=== PATIENT | female | born 1935 | race African-American/Black ===

== ENCOUNTER 2016-12-08 10:49 | Inpatient (IN) | payer MEDICARE ==
[~2016-12-08] VITALS: Ht 149.9 cm; Wt 52.6 kg
[2016-12-08] MEDS ORDERED: DEXTROSE 50% WATER 50ML SYRINGE IV ONE ×3 (11:16→15:30)
[2016-12-08] MEDS ORDERED: SODIUM CHLORIDE 0.9% 1,000 ML IV ONE ×3 (12:15→16:30)
[2016-12-08 12:48] LABS: BASOPHILS % 0.3 % (0.0-2.0); LYMPHOCYTES % 12.8 % (20.0-50.0); MEAN CORPUSCULAR HEMOGLOBIN 30.1 pg (28.0-32.0); MONOCYTES % 4.1 % (2.0-8.0); NEUTROPHILS % 82.8 % (40.0-76.0); PLATELET 69 x1000/uL (130-400); RED BLOOD CELL COUNT 2.14 mill/uL (4.2-5.4); RED CELL DISTRIBUTION WIDTH 17.9 % (11.6-14.6)
[2016-12-08 12:57] LABS: INR 1.3; PROTHROMBIN TIME 13.1 sec (9.4-11.6)
[2016-12-08 12:59] LABS: CARBON DIOXIDE 20 mEq/L (21-32); CHLORIDE 105 mEq/L (98-107)
[2016-12-08 13:03] LABS: HEMATOCRIT. 18.8 % (36.0-48.0); HEMOGLOBIN. 6.4 g/dL (12.0-16.0)
[2016-12-08 13:05] LABS: TROPONIN I 0.06 ng/mL (0.00-0.04)
[2016-12-08] MEDS ORDERED: DEXT 10%/0.9% NACL 1,000 ML IV ONE (15:30)
[2016-12-08] MEDS ORDERED: LEVOFLOXACIN 500MG PREMIX 100 ML IV ONE (16:30)
[2016-12-08 16:41] LABS: CLARITY URINE CLOUDY (CLEAR); COLOR URINE YELLOW (YELLOW); GLUCOSE URINE NEGATIVE (NEGATIVE); KETONES URINE NEGATIVE (NEGATIVE); LEUKOCYTE ESTERASE URINE NEGATIVE (NEGATIVE); NITRITE URINE NEGATIVE (NEGATIVE); OCCULT BLOOD URINE NEGATIVE (NEGATIVE); PROTEIN URINE NEGATIVE (NEGATIVE); SPECIFIC GRAVITY URINE 1.017 (1.005-1.030); UROBILINOGEN URINE 0.2 E.U./dL (0.2-1.0)
[2016-12-08 16:53] LABS: *AMPHETAMINES SCREEN URINE NEGATIVE (NEGATIVE); *BARBITURATES SCREEN URINE NEGATIVE (NEGATIVE); *BENZODIAZEPINES SCREEN URINE NEGATIVE (NEGATIVE); *COCAINE SCREEN URINE NEGATIVE (NEGATIVE); CANNABINOID URINE SCREEN NEGATIVE (NEGATIVE); METHADONE URINE SCREEN NEGATIVE (NEGATIVE); OPIATES URINE SCREEN NEGATIVE (NEGATIVE); PHENCYCLIDINE URINE SCREEN NEGATIVE (NEGATIVE)
[2016-12-08] MEDS ORDERED: DOPAMINE 800MG PREMIX 250 ML IV ONE (17:15)
[2016-12-08] MEDS ORDERED: DOPAMINE 800MG PREMIX 250 ML IV PRN (17:30)
[2016-12-08] MEDS ORDERED: VANCOMYCIN 1 G PREMIX 200 ML IV SCH (21:00)
[2016-12-08] MEDS: DEXT 5%/0.9% NACL 1,000 ML IV SCH (21:14)
[2016-12-08] MEDS ORDERED: ONDANSETRON HCL 4MG/2ML VIAL IV PRN (22:12)
[2016-12-08] MEDS ORDERED: ACETAMINOPHEN 325MG TABLET PO PRN (22:12)
[2016-12-08 23:42] VITALS: BP 164/115
[2016-12-08 23:52] VITALS: BP 143/53
[2016-12-09] VITALS (101 sets, daily range): BP systolic 62–173; BP diastolic 20–124
[2016-12-09] MEDS ORDERED: AZTREONAM 1 G in DEXTROSE 5% WATER 50 ML IV SCH (01:00)
[2016-12-09 05:26] LABS: HEMATOCRIT. 36.9 % (36.0-48.0); MEAN CORPUSCULAR HEMOGLOBIN 30.1 pg (28.0-32.0); MEAN CORPUSCULAR VOLUME 85.3 fL (81.0-99.0); MEAN PLATELET VOLUME 7.3 fl (7.4-10.4); PLATELET 66 x1000/uL (130-400); RED BLOOD CELL COUNT 4.32 mill/uL (4.2-5.4); RED CELL DISTRIBUTION WIDTH 16.2 % (11.6-14.6)
[2016-12-09 05:54] LABS: CARBON DIOXIDE 18 mEq/L (21-32); CHLORIDE 104 mEq/L (98-107)
[2016-12-09] MEDS: DOPAMINE 400MG PREMIX 250 ML IV PRN ×3 (06:02→23:31)
[2016-12-09] MEDS ORDERED: MAGNESIUM 2 G PREMIX 50 ML IV SCH (09:00)
[2016-12-09] MEDS: AZTREONAM 500MG in DEXTROSE 5% WATER 50ML IV SCH ×2 (09:39→16:25)
[2016-12-09 10:18] LABS: PLATELET ESTIMATE DECREASED
[2016-12-09] MEDS: DEXT 5%/0.9% NACL 1,000 ML IV SCH (11:28)
[2016-12-09] MEDS ORDERED: IPRATROPIUM/ALBUTEROL 0.5-3(2.5)MG/3ML NEB HHN PRN (12:45)
[2016-12-09] MEDS: IPRATROPIUM/ALBUTEROL 0.5-3(2.5)MG/3ML NEB HHN SCH ×3 (13:26→21:09)
[2016-12-09] MEDS: NOREPINEPHRINE 4 MG in DEXT 5% WATER 246 ML IV PRN ×2 (14:00→21:02)
[2016-12-09 15:15] LABS: HEMATOCRIT 36.8 % (36.0-48.0); HEMOGLOBIN 12.9 g/dL (12.0-16.0)
[2016-12-09] MEDS ORDERED: FERR-63 PO (19:12)
[2016-12-09] MEDS ORDERED: VITAMIN D PO (19:12)
[2016-12-09] MEDS ORDERED: AMLO10TA80 PO (19:12)
[2016-12-09] MEDS ORDERED: METF500T4 PO (19:12)
[2016-12-09] MEDS ORDERED: LISI40TA4 PO (19:12)
[2016-12-09] MEDS: VANCOMYCIN 500 MG PREMIX 100 ML IV SCH (20:16)
[2016-12-09] MEDS ORDERED: NOREPINEPHRINE 16 MG in DEXT 5% WATER 484 ML IV PRN (23:30)
[2016-12-09] MEDS ORDERED: NOREPINEPHRINE 16 MG in DEXT 5% WATER 500 ML IV PRN (23:30)
[2016-12-09] MEDS: NOREPINEPHRINE 16 MG in DEXTROSE 5% WATER 250 ML IV PRN (23:32)
[2016-12-10] VITALS (97 sets, daily range): BP systolic 65–157; BP diastolic 34–134
[2016-12-10] MEDS: IPRATROPIUM/ALBUTEROL 0.5-3(2.5)MG/3ML NEB HHN SCH ×6 (00:37→20:35)
[2016-12-10] MEDS: AZTREONAM 500MG in DEXTROSE 5% WATER 50ML IV SCH ×2 (00:55→08:30)
[2016-12-10] MEDS: DEXT 5%/0.9% NACL 1,000 ML IV SCH ×2 (05:44→08:30)
[2016-12-10 05:46] LABS: BASOPHILS % 0.1 % (0.0-2.0); HEMATOCRIT. 37.8 % (36.0-48.0); HEMOGLOBIN. 12.9 g/dL (12.0-16.0); LYMPHOCYTES % 8.3 % (20.0-50.0); MEAN CORPUSCULAR HEMOGLOBIN 29.6 pg (28.0-32.0); MEAN CORPUSCULAR VOLUME 86.6 fL (81.0-99.0); MEAN PLATELET VOLUME 7.8 fl (7.4-10.4); MONOCYTES % 2.6 % (2.0-8.0); RED BLOOD CELL COUNT 4.36 mill/uL (4.2-5.4); RED CELL DISTRIBUTION WIDTH 16.9 % (11.6-14.6)
[2016-12-10 06:29] LABS: CARBON DIOXIDE 15 mEq/L (21-32); CHLORIDE 106 mEq/L (98-107); CREATINE KINASE 234 IU/L (26-192)
[2016-12-10 07:02] LABS: PLATELET 49 x1000/uL (130-400)
[2016-12-10 10:00] LABS: T4 FREE 0.21 ng/dL (0.76-1.46)
[2016-12-10] MEDS ORDERED: LEVOTHYROXINE SODIUM 100 MCG/ VIAL IV SCH (10:00)
[2016-12-10] MEDS: BLOOD SUGAR DIAGNOSTIC STRIP TEST SCH ×2 (11:10→16:53)
[2016-12-10] MEDS: INSULIN LISPRO 100 UNITS/ML SUBCUT SCH ×3 (11:21→20:52)
[2016-12-10 11:37] LABS: AMYLASE 508 IU/L (25-115)
[2016-12-10] MEDS ORDERED: DEXTROSE 50% WATER 50ML SYRINGE IV PRN (12:00)
[2016-12-10 12:27] LABS: HEPATITIS B SURFACE ANTIGEN NEGATIVE
[2016-12-10 12:55] LABS: HEPATITIS B CORE AB IGM NEGATIVE
[2016-12-10 12:57] LABS: HEPATITIS A AB IGM NEGATIVE (NEGATIVE)
[2016-12-10] MEDS: AZTREONAM 1G in DEXTROSE 5% WATER 50ML IV SCH ×2 (13:02→22:21)
[2016-12-10] MEDS: NOREPINEPHRINE 16 MG in DEXTROSE 5% WATER 250 ML IV PRN ×2 (13:20→22:24)
[2016-12-10] MEDS: DOPAMINE 400MG PREMIX 250 ML IV PRN (15:41)
[2016-12-10 16:05] LABS: VITAMIN B12 SERUM 282 pg/mL (211-911)
[2016-12-10] MEDS: LEVOFLOXACIN 500MG PREMIX 100 ML IV SCH (17:03)
[2016-12-10] MEDS ORDERED: LEVOFLOXACIN 250MG PREMIX 50 ML IV SCH (18:00)
[2016-12-10] MEDS: SODIUM ACETATE 100 MEQ in DEXTROSE 5% WATER 1,000 ML IV SCH (18:39)
[2016-12-10] MEDS: VANCOMYCIN 500 MG PREMIX 100 ML IV SCH (20:45)
[2016-12-11] VITALS (95 sets, daily range): BP systolic 85–141; BP diastolic 50–74
[2016-12-11] MEDS: IPRATROPIUM/ALBUTEROL 0.5-3(2.5)MG/3ML NEB HHN SCH ×6 (03:06→20:16)
[2016-12-11 06:21] LABS: BASOPHILS % 0.1 % (0.0-2.0); EOSINOPHILS % 0.1 % (0.0-5.0); HEMATOCRIT. 39.1 % (36.0-48.0); HEMOGLOBIN. 13.6 g/dL (12.0-16.0); MEAN CORPUSCULAR HEMOGLOBIN 30.2 pg (28.0-32.0); MEAN PLATELET VOLUME 8.2 fl (7.4-10.4); MONOCYTES % 2.8 % (2.0-8.0); PLATELET 58 x1000/uL (130-400); RED BLOOD CELL COUNT 4.49 mill/uL (4.2-5.4); RED CELL DISTRIBUTION WIDTH 16.5 % (11.6-14.6)
[2016-12-11] MEDS: AZTREONAM 1G in DEXTROSE 5% WATER 50ML IV SCH ×3 (06:40→21:25)
[2016-12-11] MEDS: LEVOTHYROXINE SODIUM 100 MCG/ VIAL IV SCH (06:41)
[2016-12-11] MEDS: BLOOD SUGAR DIAGNOSTIC STRIP TEST SCH ×4 (06:41→17:07)
[2016-12-11] MEDS: DOPAMINE 400MG PREMIX 250 ML IV PRN (06:44)
[2016-12-11] MEDS: NOREPINEPHRINE 16 MG in DEXTROSE 5% WATER 250 ML IV PRN ×2 (07:56→18:21)
[2016-12-11 07:58] LABS: CARBON DIOXIDE 17 mEq/L (21-32); PHOSPHORUS 1.1 mg/dL (2.5-4.9)
[2016-12-11] MEDS: SODIUM ACETATE 100 MEQ in DEXTROSE 5% WATER 1,000 ML IV SCH ×2 (08:36→20:03)
[2016-12-11 08:38] LABS: CHLORIDE 103 mEq/L (98-107)
[2016-12-11] MEDS ORDERED: SODIUM PHOS,M-BASIC-D-BASIC 15 MM in DEXT 5% WATER 245 ML IV SCH (11:00)
[2016-12-11] MEDS ORDERED: MAGNESIUM 4 G PREMIX 100 ML IV SCH (11:00)
[2016-12-11] MEDS: INSULIN LISPRO 100 UNITS/ML SUBCUT SCH ×3 (12:00→20:03)
[2016-12-11] MEDS: VANCOMYCIN 750 MG PREMIX 150 ML IV SCH (12:03)
[2016-12-11] MEDS: HYDROCORTISONE SOD SUCCINATE 100 MG/2 ML VIAL IV SCH ×2 (15:31→21:25)
[2016-12-11] MEDS: DOCUSATE SODIUM SUGAR FREE 100MG/10ML UDC NG SCH (15:36)
[2016-12-12] VITALS (79 sets, daily range): BP systolic 79–154; BP diastolic 41–82
[2016-12-12] MEDS: IPRATROPIUM/ALBUTEROL 0.5-3(2.5)MG/3ML NEB HHN SCH ×6 (00:15→16:50)
[2016-12-12] MEDS: BLOOD SUGAR DIAGNOSTIC STRIP TEST SCH ×4 (00:17→17:35)
[2016-12-12] MEDS: NOREPINEPHRINE 16 MG in DEXTROSE 5% WATER 250 ML IV PRN ×2 (04:29→17:28)
[2016-12-12] MEDS: SODIUM ACETATE 100 MEQ in DEXTROSE 5% WATER 1,000 ML IV SCH ×2 (04:29→22:18)
[2016-12-12] MEDS: AZTREONAM 1G in DEXTROSE 5% WATER 50ML IV SCH ×3 (05:26→22:18)
[2016-12-12] MEDS: LEVOTHYROXINE SODIUM 100 MCG/ VIAL IV SCH (05:26)
[2016-12-12] MEDS: INSULIN LISPRO 100 UNITS/ML SUBCUT SCH (05:42)
[2016-12-12 05:51] LABS: HEMATOCRIT. 35.6 % (36.0-48.0); HEMOGLOBIN. 12.4 g/dL (12.0-16.0); MEAN CORPUSCULAR HEMOGLOBIN 29.7 pg (28.0-32.0); MEAN CORPUSCULAR VOLUME 85.1 fL (81.0-99.0); MEAN PLATELET VOLUME 7.7 fl (7.4-10.4); RED BLOOD CELL COUNT 4.18 mill/uL (4.2-5.4); RED CELL DISTRIBUTION WIDTH 16.6 % (11.6-14.6)
[2016-12-12 06:59] LABS: CARBON DIOXIDE 22 mEq/L (21-32); CHLORIDE 99 mEq/L (98-107); PHOSPHORUS 3.2 mg/dL (2.5-4.9)
[2016-12-12 07:20] LABS: TROPONIN I 0.79 ng/mL (0.00-0.04)
[2016-12-12] MEDS: DOCUSATE SODIUM SUGAR FREE 100MG/10ML UDC NG SCH (09:49)
[2016-12-12 09:57] LABS: NUCLEATED RED BLOOD CELLS 2 /100 WBC; PLATELET ESTIMATE MARKEDLY DECREASED
[2016-12-12 09:58] LABS: PLATELET 40 x1000/uL (130-400)
[2016-12-12] MEDS ORDERED: INSULIN LISPRO 100 UNITS/ML SUBCUT SCH (12:00)
[2016-12-12] MEDS: PANTOPRAZOLE SODIUM 40 MG/VIAL IV SCH (12:09)
[2016-12-12] MEDS: INSULIN LISPRO (LOW DOSE) 100 UNITS/ML SUBCUT SCH ×2 (12:10→17:28)
[2016-12-12] MEDS: VANCOMYCIN 750 MG PREMIX 150 ML IV SCH (12:11)
[2016-12-12] MEDS: LEVOFLOXACIN 500MG PREMIX 100 ML IV SCH (17:28)
[2016-12-13] VITALS (76 sets, daily range): BP systolic 83–127; BP diastolic 39–76
[2016-12-13] MEDS: BLOOD SUGAR DIAGNOSTIC STRIP TEST SCH ×4 (00:05→17:23)
[2016-12-13] MEDS: IPRATROPIUM/ALBUTEROL 0.5-3(2.5)MG/3ML NEB HHN SCH ×6 (00:39→20:02)
[2016-12-13] MEDS: AZTREONAM 1G in DEXTROSE 5% WATER 50ML IV SCH ×3 (05:21→21:30)
[2016-12-13] MEDS: LEVOTHYROXINE SODIUM 100 MCG/ VIAL IV SCH (05:21)
[2016-12-13 05:41] LABS: CARBON DIOXIDE 28 mEq/L (21-32); CHLORIDE 99 mEq/L (98-107); PHOSPHORUS 2.3 mg/dL (2.5-4.9)
[2016-12-13 05:58] LABS: BASOPHILS % 0.1 % (0.0-2.0); HEMATOCRIT. 31.3 % (36.0-48.0); HEMOGLOBIN. 10.9 g/dL (12.0-16.0); LYMPHOCYTES % 15.1 % (20.0-50.0); MEAN CORPUSCULAR HEMOGLOBIN 29.7 pg (28.0-32.0); MEAN CORPUSCULAR VOLUME 85.3 fL (81.0-99.0); MEAN PLATELET VOLUME 7.8 fl (7.4-10.4); NEUTROPHILS % 79.8 % (40.0-76.0); RED BLOOD CELL COUNT 3.67 mill/uL (4.2-5.4); RED CELL DISTRIBUTION WIDTH 16.7 % (11.6-14.6)
[2016-12-13] MEDS: INSULIN LISPRO (LOW DOSE) 100 UNITS/ML SUBCUT SCH ×4 (06:00→18:00)
[2016-12-13 06:05] LABS: PLATELET 37 x1000/uL (130-400)
[2016-12-13] MEDS ORDERED: POTASSIUM PHOS,M-BASIC-D-BASIC 15 MMOL in DEXT 5% WATER 245 ML IV NR (08:00)
[2016-12-13] MEDS: DOCUSATE SODIUM SUGAR FREE 100MG/10ML UDC NG SCH (09:07)
[2016-12-13] MEDS: PANTOPRAZOLE SODIUM 40 MG/VIAL IV SCH (09:07)
[2016-12-13 09:41] LABS: PLATELET ESTIMATE MARKEDLY DECREASED
[2016-12-13] MEDS ORDERED: LIDOCAINE HCL 1% 20ML VIAL (Pyxis) INJ ONE (10:51)
[2016-12-13] MEDS ORDERED: SODIUM BICARBONATE 4% (2.4MEQ) 5ML VIAL IV ONE (10:51)
[2016-12-13] MEDS ORDERED: IOHEXOL-300 100 ML BOTTLE ONE (10:51)
[2016-12-13] MEDS: SODIUM ACETATE 100 MEQ in DEXTROSE 5% WATER 1,000 ML IV SCH (12:27)
[2016-12-13] MEDS: DEXT 5%/0.45% NACL KCL 20MEQ/L 1,000 ML IV SCH (14:55)
[2016-12-13] MEDS: MIDODRINE HCL 5MG TABLET NG SCH ×2 (15:07→21:31)
[2016-12-14] VITALS (96 sets, daily range): BP systolic 83–129; BP diastolic 40–70
[2016-12-14] MEDS: BLOOD SUGAR DIAGNOSTIC STRIP TEST SCH ×4 (00:05→18:33)
[2016-12-14] MEDS: IPRATROPIUM/ALBUTEROL 0.5-3(2.5)MG/3ML NEB HHN SCH ×6 (00:17→20:20)
[2016-12-14] MEDS: DEXT 5%/0.45% NACL KCL 20MEQ/L 1,000 ML IV SCH (05:03)
[2016-12-14] MEDS: AZTREONAM 1G in DEXTROSE 5% WATER 50ML IV SCH ×3 (05:03→21:21)
[2016-12-14] MEDS: MIDODRINE HCL 5MG TABLET NG SCH ×3 (05:03→21:20)
[2016-12-14] MEDS: LEVOTHYROXINE SODIUM 100 MCG/ VIAL IV SCH (05:03)
[2016-12-14] MEDS: INSULIN LISPRO (LOW DOSE) 100 UNITS/ML SUBCUT SCH ×4 (05:04→18:00)
[2016-12-14 05:30] LABS: BASOPHILS % 0.1 % (0.0-2.0); EOSINOPHILS % 0.2 % (0.0-5.0); HEMATOCRIT. 32.3 % (36.0-48.0); HEMOGLOBIN. 11.4 g/dL (12.0-16.0); LYMPHOCYTES % 23.4 % (20.0-50.0); MEAN CORPUSCULAR VOLUME 84.9 fL (81.0-99.0); MEAN PLATELET VOLUME 8.3 fl (7.4-10.4); MONOCYTES % 5.6 % (2.0-8.0); NEUTROPHILS % 70.7 % (40.0-76.0); RED BLOOD CELL COUNT 3.81 mill/uL (4.2-5.4); RED CELL DISTRIBUTION WIDTH 16.2 % (11.6-14.6)
[2016-12-14 05:41] LABS: CARBON DIOXIDE 27 mEq/L (21-32); CHLORIDE 102 mEq/L (98-107); PHOSPHORUS 2.4 mg/dL (2.5-4.9)
[2016-12-14 05:47] LABS: PLATELET 36 x1000/uL (130-400)
[2016-12-14] MEDS ORDERED: MAGNESIUM 2 G PREMIX 50 ML IV NR (08:00)
[2016-12-14 09:06] LABS: A/G RATIO 0.7 (0.7-1.7); ALBUMIN 2.2 g/dL (2.9-4.4); ALPHA-1-GLOBULIN 0.4 g/dL (0.0-0.4); ALPHA-2-GLOBULIN 0.6 g/dL (0.4-1.0); BETA GLOBULIN 1.2 g/dL (0.7-1.3); GAMMA GLOBULINS 0.9 g/dL (0.4-1.8); GLOBULIN TOTAL 3.1 g/dL (2.2-3.9); M-SPIKE Not Observed g/dL (Not Observed); TOTAL PROTEIN SERUM 5.3 g/dL (6.0-8.5)
[2016-12-14] MEDS ORDERED: POTASSIUM PHOS,M-BASIC-D-BASIC 20 MMOL in DEXT 5% WATER 243.3333 ML IV NR (09:30)
[2016-12-14] MEDS: PANTOPRAZOLE SODIUM 40 MG/VIAL IV SCH (09:59)
[2016-12-14] MEDS: DOCUSATE SODIUM SUGAR FREE 100MG/10ML UDC NG SCH ×2 (09:59→10:05)
[2016-12-14] MEDS ORDERED: DEXT 5%/0.45% NACL KCL 20MEQ/L 1,000 ML IV SCH (10:00)
[2016-12-14] MEDS: LEVOFLOXACIN 500MG PREMIX 100 ML IV SCH (17:16)
[2016-12-14] MEDS ORDERED: VANCOMYCIN 1 G PREMIX 200 ML IV SCH (21:00)
[2016-12-14] MEDS: NOREPINEPHRINE 16 MG in DEXTROSE 5% WATER 250 ML IV PRN (21:20)
[2016-12-15] VITALS (102 sets, daily range): BP systolic 60–119; BP diastolic 36–64
[2016-12-15] MEDS: IPRATROPIUM/ALBUTEROL 0.5-3(2.5)MG/3ML NEB HHN SCH ×7 (00:12→23:49)
[2016-12-15 05:34] LABS: HEMATOCRIT. 31.5 % (36.0-48.0); HEMOGLOBIN. 11.1 g/dL (12.0-16.0); MEAN CORPUSCULAR HEMOGLOBIN 29.9 pg (28.0-32.0); MEAN CORPUSCULAR VOLUME 85.2 fL (81.0-99.0); MEAN PLATELET VOLUME 8.5 fl (7.4-10.4); RED CELL DISTRIBUTION WIDTH 16.5 % (11.6-14.6)
[2016-12-15 05:57] LABS: PLATELET 39 x1000/uL (130-400)
[2016-12-15 05:59] LABS: CARBON DIOXIDE 27 mEq/L (21-32); CHLORIDE 101 mEq/L (98-107)
[2016-12-15] MEDS: INSULIN LISPRO (LOW DOSE) 100 UNITS/ML SUBCUT SCH ×5 (06:00→23:00)
[2016-12-15] MEDS: BLOOD SUGAR DIAGNOSTIC STRIP TEST SCH ×5 (06:12→23:00)
[2016-12-15] MEDS: MIDODRINE HCL 5MG TABLET NG SCH ×3 (06:14→23:00)
[2016-12-15] MEDS: AZTREONAM 1G in DEXTROSE 5% WATER 50ML IV SCH ×3 (06:15→22:59)
[2016-12-15] MEDS: LEVOTHYROXINE SODIUM 100 MCG/ VIAL IV SCH (08:04)
[2016-12-15] MEDS: PANTOPRAZOLE SODIUM 40 MG/VIAL IV SCH (08:04)
[2016-12-15 08:09] LABS: METHYLMALONIC ACID 180 nmol/L (0-378)
[2016-12-15 12:23] LABS: ATYPICAL LYMPHOCYTES 1; NUCLEATED RED BLOOD CELLS 2 /100 WBC; PLATELET ESTIMATE MARKEDLY DECREASED
[2016-12-15] MEDS: VANCOMYCIN 1 G PREMIX 200 ML IV SCH (12:40)
[2016-12-15] MEDS ORDERED: VANCOMYCIN 750 MG PREMIX 150 ML IV SCH (21:00)
[2016-12-15] MEDS: NOREPINEPHRINE 16 MG in DEXTROSE 5% WATER 250 ML IV PRN (23:06)
[2016-12-16] VITALS (90 sets, daily range): BP systolic 84–125; BP diastolic 32–69
[2016-12-16] MEDS: IPRATROPIUM/ALBUTEROL 0.5-3(2.5)MG/3ML NEB HHN SCH ×5 (04:23→20:42)
[2016-12-16 04:58] LABS: BASOPHILS % 0.2 % (0.0-2.0); EOSINOPHILS % 0.2 % (0.0-5.0); HEMATOCRIT. 30.9 % (36.0-48.0); HEMOGLOBIN. 10.8 g/dL (12.0-16.0); LYMPHOCYTES % 23.7 % (20.0-50.0); MEAN PLATELET VOLUME 8.2 fl (7.4-10.4); MONOCYTES % 5.6 % (2.0-8.0); NEUTROPHILS % 70.3 % (40.0-76.0); RED BLOOD CELL COUNT 3.59 mill/uL (4.2-5.4); RED CELL DISTRIBUTION WIDTH 16.2 % (11.6-14.6)
[2016-12-16 05:03] LABS: CARBON DIOXIDE 27 mEq/L (21-32); CHLORIDE 106 mEq/L (98-107); PHOSPHORUS 2.6 mg/dL (2.5-4.9)
[2016-12-16] MEDS: MIDODRINE HCL 5MG TABLET NG SCH ×3 (05:17→23:28)
[2016-12-16] MEDS: BLOOD SUGAR DIAGNOSTIC STRIP TEST SCH ×4 (05:17→23:28)
[2016-12-16] MEDS: INSULIN LISPRO (LOW DOSE) 100 UNITS/ML SUBCUT SCH ×4 (05:22→23:33)
[2016-12-16 05:57] LABS: PLATELET 46 x1000/uL (130-400)
[2016-12-16] MEDS: PANTOPRAZOLE SODIUM 40 MG/VIAL IV SCH (08:26)
[2016-12-16] MEDS: DOCUSATE SODIUM SUGAR FREE 100MG/10ML UDC NG SCH (08:26)
[2016-12-16] MEDS: LEVOTHYROXINE SODIUM 100 MCG/ VIAL IV SCH (08:26)
[2016-12-16] MEDS: VANCOMYCIN 1 G PREMIX 200 ML IV SCH (08:27)
[2016-12-17] VITALS (68 sets, daily range): BP systolic 64–140; BP diastolic 32–62
[2016-12-17] MEDS: IPRATROPIUM/ALBUTEROL 0.5-3(2.5)MG/3ML NEB HHN SCH ×3 (00:04→08:09)
[2016-12-17] MEDS: MIDODRINE HCL 5MG TABLET NG SCH (05:42)
[2016-12-17] MEDS: BLOOD SUGAR DIAGNOSTIC STRIP TEST SCH (05:42)
[2016-12-17 05:45] LABS: EOSINOPHILS % 0.2 % (0.0-5.0); HEMOGLOBIN. 9.6 g/dL (12.0-16.0); LYMPHOCYTES % 17.6 % (20.0-50.0); MEAN CORPUSCULAR VOLUME 87.9 fL (81.0-99.0); MEAN PLATELET VOLUME 8.9 fl (7.4-10.4); MONOCYTES % 4.9 % (2.0-8.0); NEUTROPHILS % 77.3 % (40.0-76.0); PLATELET 61 x1000/uL (130-400); RED BLOOD CELL COUNT 3.18 mill/uL (4.2-5.4); RED CELL DISTRIBUTION WIDTH 16.1 % (11.6-14.6)
[2016-12-17] MEDS: INSULIN LISPRO (LOW DOSE) 100 UNITS/ML SUBCUT SCH (05:46)
[2016-12-17 06:07] LABS: CARBON DIOXIDE 28 mEq/L (21-32); CHLORIDE 106 mEq/L (98-107); PHOSPHORUS 2.5 mg/dL (2.5-4.9)
[2016-12-17] MEDS: PANTOPRAZOLE SODIUM 40 MG/VIAL IV SCH (08:16)
[2016-12-17] MEDS: DOCUSATE SODIUM SUGAR FREE 100MG/10ML UDC NG SCH (08:16)
[2016-12-17] MEDS: LEVOTHYROXINE SODIUM 100 MCG/ VIAL IV SCH (08:20)
[2016-12-17] MEDS: MORPHINE SULFATE 250 MG in DEXT 5% WATER 240 ML IV PRN (15:49)
[2016-12-18] VITALS (18 sets, daily range): BP systolic 67–139; BP diastolic 30–63
[2016-12-19] VITALS: BP 104/50
[2016-12-19] MEDS: MORPHINE SULFATE 250 MG in DEXT 5% WATER 240 ML IV PRN ×2 (03:39→17:28)
[2016-12-19 04:00] VITALS: BP 93/47
[2016-12-19 08:00] VITALS: BP 86/42
[2016-12-19 12:00] VITALS: BP 85/41
[2016-12-19 16:00] VITALS: BP 84/38
[2016-12-19 20:00] VITALS: BP 125/46
[2016-12-20] VITALS: BP 130/55
[2016-12-20] MEDS: MORPHINE SULFATE 250 MG in DEXT 5% WATER 240 ML IV PRN ×2 (02:20→10:31)
[2016-12-20 04:00] VITALS: BP 99/46
[2016-12-20 08:00] VITALS: BP 201/161
[2016-12-20 12:00] VITALS: BP 102/41
[2016-12-20 14:33] VITALS: BP 102/41
[2016-12-20 16:00] VITALS: BP 93/37
== END 2016-12-20 16:30 | DRG 853 ==
LOC: ER 11:42 → EDBEDREQ 16:35 → EDBEDREQSVC 16:38 → EDBEDREQ 16:40 → CANRESERV 16:41 → ENRESERV 16:41 → EDBEDREQSVC 16:46 → MICUSO 16:47 → CANRESERV 16:48 → ENRESERV 16:48 → EDBEDREQTM 16:56 → EDBEDREQ 16:56 → ENRESERV 22:21 → 6EST 12-18 23:29
PROVIDERS: ADMIT Internal Medicine Nephrology; ATTEND Internal Medicine Nephrology
PROC: 30233N1 Transfusion of Nonautologous Red Blood Cells into Peripheral Vein, Percutaneous Approach (ICD-10-PCS; 2016-12-08)
PROC: 06H03DZ Insertion of Intraluminal Device into Inferior Vena Cava, Percutaneous Approach (ICD-10-PCS; principal; 2016-12-13)
PROC: B51B1ZZ Fluoroscopy of Right Lower Extremity Veins using Low Osmolar Contrast (ICD-10-PCS; 2016-12-13)
DX: A41.9 Sepsis, unspecified organism (principal); E43 Unspecified severe protein-calorie malnutrition; J96.00 Acute respiratory failure, unspecified whether with hypoxia or hypercapnia; I63.9 Cerebral infarction, unspecified; R65.21 Severe sepsis with septic shock; G93.41 Metabolic encephalopathy; I74.3 Embolism and thrombosis of arteries of the lower extremities; J18.9 Pneumonia, unspecified organism; E87.0 Hyperosmolality and hypernatremia; N17.9 Acute kidney failure, unspecified; K85.10 Biliary acute pancreatitis without necrosis or infection; D68.59 Other primary thrombophilia; I82.411 Acute embolism and thrombosis of right femoral vein; N39.0 Urinary tract infection, site not specified; E87.1 Hypo-osmolality and hyponatremia; G91.2 (Idiopathic) normal pressure hydrocephalus; N12 Tubulo-interstitial nephritis, not specified as acute or chronic; F03.90 Unspecified dementia, unspecified severity, without behavioral disturbance, psychotic disturbance, mood disturbance, and anxiety; E11.649 Type 2 diabetes mellitus with hypoglycemia without coma; D69.6 Thrombocytopenia, unspecified; E83.42 Hypomagnesemia; Z66 Do not resuscitate; E83.52 Hypercalcemia; B95.1 Streptococcus, group B, as the cause of diseases classified elsewhere; E03.9 Hypothyroidism, unspecified; E83.39 Other disorders of phosphorus metabolism; E87.6 Hypokalemia; G93.89 Other specified disorders of brain; I11.9 Hypertensive heart disease without heart failure; E87.70 Fluid overload, unspecified; D50.9 Iron deficiency anemia, unspecified; I35.0 Nonrheumatic aortic (valve) stenosis; R16.0 Hepatomegaly, not elsewhere classified; I44.0 Atrioventricular block, first degree; K80.20 Calculus of gallbladder without cholecystitis without obstruction; N28.1 Cyst of kidney, acquired; R47.02 Dysphasia; Z51.5 Encounter for palliative care; Z82.49 Family history of ischemic heart disease and other diseases of the circulatory system; Z83.3 Family history of diabetes mellitus; Z91.14 Patient's other noncompliance with medication regimen; Z92.3 Personal history of irradiation; Z88.0 Allergy status to penicillin; Z79.84 Long term (current) use of oral hypoglycemic drugs; Z79.899 Other long term (current) drug therapy; Z68.23 Body mass index [BMI] 23.0-23.9, adult
CPT/HCPCS: 36415; 36430; 36556; 37191; 70450; 70551; 71010; 76700; 78580; 80048; 80053; 80076; 80202; 80305; 81001; 82150; 82270; 82533; 82550; 82607; 82668; 82962; 83036; 83605; 83615; 83690; 83735; 83880; 83921; 84100; 84132; 84155; 84165; 84439; 84443; 84478; 84481; 84484; 85014; 85018; 85025; 85379; 85610; 86022; 86705; 86709; 86803; 86850; 86900; 86920; 87015; 87040; 87045; 87077; 87086; 87340; 87427; 87449; 87493; 92610; 93005; 93306; 93970; 94640; 94664; 95816; 96365; 96366; 96367; 99291; A6261; C1769; C1880; C9113; J1265; J1644; J1720; J1815; J1956; J2274; J2405; J3370; J3475; J3490; J7030; J7040; J7042; J7060; J7070; J7620; P9016; Q9967; A4315